=== PATIENT | male | born 1950 | race African-American/Black ===

== ENCOUNTER 2021-03-30 07:13 | Day surgery (SDC) | payer MEDICARE, OTHER ==
[2021-03-27 13:34] VITALS: BP 132/89; PULSE 73
[2021-03-27 13:45] VITALS: BP 145/74; PULSE 72
[~2021-03-30] VITALS: Ht 175.3 cm; Wt 90.6 kg
[2021-03-30] VITALS (10 sets, daily range): BP systolic 125–195; BP diastolic 79–109; PULSE 77–101; TEMP 97.9
[2021-03-30] MEDS ORDERED: K-DUR20 MEQ PO (07:46)
[2021-03-30] MEDS ORDERED: ASPIRIN E.C. 8181 MG PO (07:47)
[2021-03-30] MEDS ORDERED: ZESTRIL 10MG10 MG PO (07:59)
[2021-03-30 08:00] LABS: HEMOGLOBIN 14.3 g/dl (13.5-18.0); MEAN CELL VOLUME 85 fl (80.0-100.0); MEAN CORPUSCULAR HEMOGLOBIN 28 pg (27.0-31.0); MEAN CORPUSCULAR HGB CONC 33 g/dl (33.0-37.0); MEAN PLATELET VOLUME 9.6 fl (7.4-10.4); PLATELET COUNT 309 K/mm3 (130-400); RED BLOOD COUNT 5.15 M/mm3 (4.20-5.60); REDCELL DISTRIBUTION WIDTH-CV 14.4 % (11.5-14.5)
[2021-03-30 08:03] LABS: INR 1.1 (0.8-3.0)
[2021-03-30] MEDS ORDERED: GLUCOPHAGE500 MG/TAB PO (08:03)
[2021-03-30] MEDS ORDERED: RT SPIRIVA18 MCG IH (08:04)
[2021-03-30] MEDS ORDERED: HCTZ 25MG TAB25 MG PO (08:04)
[2021-03-30] MEDS ORDERED: RT ADVAIR 228 DISKUS IH (08:05)
[2021-03-30] MEDS ORDERED: PROAIR HFA0.09 MG/AC IH (08:05)
[2021-03-30 08:06] LABS: PARTIAL THROMBOPLASTIN TIME 31.1 SECONDS (26.0-37.0)
[2021-03-30] MEDS ORDERED: ZYRTEC 10MG10 MG PO (08:06)
[2021-03-30] MEDS ORDERED: FLONASEALLERGY NS (08:06)
[2021-03-30] MEDS ORDERED: MASON NATURAL2000 IU PO (08:06)
[2021-03-30] MEDS ORDERED: FLOMAX 0.40.4 MG/CAP PO (08:07)
[2021-03-30 08:08] LABS: CALCIUM 9.4 mg/dL (8.4-10.2); CREATININE, serum 0.88 (0.66-1.25); POTASSIUM 3.3 mmol/L (3.4-5.0)
[2021-03-30] MEDS ORDERED: VIAGRA100 M1 PO (08:08)
[2021-03-30] MEDS ORDERED: LOTRIMIN1% TP (08:47)
[2021-03-30] MEDS ORDERED: TEMOVATE0.05% TP (08:48)
--- NOTE | 2021-03-30 13:00 | NUR ---
DC instructions were reviewed with pt, he expressed understanding. Air was removed from TR band in 2ml increments with no bleeding or complication. Pt is steady on feet. INT DC'd with catheter intact. Pt assisted out to 's car by wheelchair with personal belongings.
== END 2021-03-30 13:00 | disposition home or self-care (01) ==
LOC: COL.CAR 07:13
PROVIDERS: Internal Medicine Cardiovascular Disease
DX: I25.110 Atherosclerotic heart disease of native coronary artery with unstable angina pectoris (principal); J44.9 Chronic obstructive pulmonary disease, unspecified; E78.5 Hyperlipidemia, unspecified; Z87.891 Personal history of nicotine dependence; Z79.82 Long term (current) use of aspirin; Z79.899 Other long term (current) drug therapy
CPT/HCPCS: C1769; C1887; J0153; J1644; J2250; J3010; Q9967

== ENCOUNTER 2023-10-04 07:26 | Day surgery (SDC) | payer MEDICARE, OTHER ==
[~2023-10-04] VITALS: Ht 175.3 cm; Wt 90.6 kg
[2023-10-04] VITALS (12 sets, daily range): BP systolic 111–174; BP diastolic 62–94; PULSE 74–87; TEMP 98.2
[~2023-10-04 07:26] MED LIST: ASPIRIN E.C. 8181 MG PO; FLOMAX 0.40.4 MG/CAP PO; FLONASEALLERGY NS; GLUCOPHAGE500 MG/TAB PO; HCTZ 25MG TAB25 MG PO; K-DUR 10 MEQ T10 MEQ PO; LOTRIMIN1% TP; MASON NATURAL2000 IU PO; PROAIR HFA0.09 MG/AC IH; RT ADVAIR 528 DISKUS IH; RT SPIRIVA18 MCG IH; TEMOVATE0.05% TP; VIAGRA100 M1 PO; ZESTRIL 10MG10 MG PO; ZYRTEC 10MG10 MG PO
[2023-10-04] MEDS ORDERED: 1/2 NS 1,000 ML IV SCH (07:45)
[2023-10-04 08:03] LABS: BASO # 0.1 K/mm3 (0.0-0.2); EOS # 0.3 K/mm3 (0.0-0.7); EOS % 3.7 % (0.0-4.0); GRAN % 55.4 % (42.2-75.2); HEMATOCRIT 46.6 % (42.0-52.0); HEMOGLOBIN 15.4 g/dl (13.5-18.0); LYMPH # 2.3 K/mm3 (1.2-3.4); LYMPH % 31.2 % (20.0-51.0); MEAN CELL VOLUME 86 fl (80.0-100.0); MEAN CORPUSCULAR HEMOGLOBIN 28 pg (27-31); MEAN CORPUSCULAR HGB CONC 33 g/dl (33.0-37.0); MEAN PLATELET VOLUME 9.7 fl (7.4-10.4); MONO # 0.6 K/mm3 (0.1-0.6); MONO % 8.6 % (1.7-9.3); PLATELET COUNT 330 K/mm3 (130-400); RED BLOOD COUNT 5.42 M/mm3 (4.20-5.60); REDCELL DISTRIBUTION WIDTH-CV 13.8 % (11.5-14.5)
[2023-10-04 08:13] LABS: INR 1.1 (0.8-3.0)
[2023-10-04 08:15] LABS: PARTIAL THROMBOPLASTIN TIME 31.3 SECONDS (26.0-37.0)
[2023-10-04 08:31] LABS: CALCIUM 9.8 mg/dL (8.4-10.2); CREATININE, serum 1.09 mg/dL (0.72-1.25); POTASSIUM 3.2 mmol/L (3.5-4.5)
--- NOTE | 2023-10-04 09:38 | NUR ---
Refer to [facility] Report for procedural sedation/notes
[2023-10-04] MEDS ORDERED: NASAREL0.025 MG/1 NAS (09:43)
[2023-10-04] MEDS ORDERED: ERGOCALCIFER50000 IU PO (09:44)
[2023-10-04] MEDS ORDERED: VOLTAREN GEL 1%1 TU TP (09:46)
[2023-10-04] MEDS ORDERED: ILOTYCIN5 MG/GM OP (09:46)
[2023-10-04] MEDS ORDERED: CRESTOR20 MG PO (09:47)
[2023-10-04] MEDS ORDERED: NORVASC2.5 MG PO (09:47)
[2023-10-04] MEDS ORDERED: Verapamil 2.5 MG/ML 2 ML VIAL IA SCH (09:49)
[2023-10-04] MEDS ORDERED: Nitroglycerin 100 MCG/ML (Cath Lab) 10 ML VIAL IA SCH (09:50)
[2023-10-04] MEDS ORDERED: Heparin 1,000 UNITS/ML 10 ML Multi-Dose VIAL IV SCH (09:52)
[2023-10-04] MEDS ORDERED: CIPRO 250MG TA250 MG PO (09:53)
[2023-10-04] MEDS ORDERED: Midazolam 2 MG/2 ML VIAL IV SCH (09:55)
[2023-10-04] MEDS ORDERED: fentaNYL 50 MCG/ML 2 ML VIAL IV SCH (09:55)
[2023-10-04] MEDS ORDERED: Iohexol 350 - 100 ML VIAL INCOR ONE (09:57)
--- NOTE | 2023-10-04 12:30 | NUR ---
Small amount of blood noted under TR band after pt adjusted himself in bed while eating. No active bleeding or oozing. Blood is cleaned with sterile q-tip under TR band. Will wait additional 30 mins prior to removing air from TR band.
--- NOTE | 2023-10-04 14:29 | NUR ---
No further bleeding from radial site. Air removed from TR band in 2 ml increments with no oozing or hematoma. Site covered with folded 2x2 and gauze. Pt is steady on feet. He ate meal tray. No complaints of nausea or pain. IV DC'd, site wrapped with coban. Pt assisted out to 's car by wheelchair with belongings.
== END 2023-10-04 14:29 | disposition home or self-care (01) ==
LOC: COL.CAR 07:26
PROVIDERS: Internal Medicine Cardiovascular Disease
DX: I25.10 Atherosclerotic heart disease of native coronary artery without angina pectoris (principal); I49.3 Ventricular premature depolarization; R00.2 Palpitations; Z87.891 Personal history of nicotine dependence
CPT/HCPCS: J1644; J2250; J3010; Q9967